=== PATIENT | male | born 1960 | race Caucasian/White ===

== ENCOUNTER 2016-07-29 21:02 | Emergency (ER) | payer OTHER ==
[~2016-07-29] VITALS: Ht 182.9 cm; Wt 130.0 kg
[~2016-07-29 21:02] MED LIST: FRS/40 PO; LEVO50TA6 PO; LISI5TAB3 PO; METO25TA56 PO; POTA20TA16 PO; ZCRT/40 PO
[2016-07-29 21:05] VITALS: TEMP 36.3; Ht 182.9 cm; Wt 130.0 kg
[2016-07-29] MEDS ORDERED: LISI5TAB PO (21:33)
[2016-07-29] MEDS ORDERED: NAPR1TAB9 PO (21:40)
[2016-07-29] MEDS ORDERED: C-PAP (21:40)
[2016-07-29] MEDS ORDERED: ONDANSETRON INJ 2 MG/ML 2 ML VIAL IV STA (21:47)
[2016-07-29] MEDS ORDERED: KETOROLAC TROMETHAMINE 30 MG/ML VIAL IV STA (21:47)
[2016-07-29] MEDS ORDERED: MoRPHine SULFATE 4 MG/ML 1 ML CARP\\VIAL IV STA (21:47)
--- NOTE | 2016-07-29 21:49 | EMERGENCY ROOM VISIT NOTE ---
History Report prepared by Marthaibyoan: Ross Mitchell Under the Supervision of: Dr. Shaw Acosta D.O. First contact with patient: 21:37 Chief Complaint: FLANK PAIN Stated Complaint: SHARP PAIN ON LF SIDE History of Present Illness The patient is a 56 year old male who presents to the Emergency Room with complaints of worsening left flank pain since 1899 tonight. The pain radiates to his left lower quadrant and to the testicles. The patient's pain was initially rated 7/10 in severity but is currently rated 10/10. The patient had Aleve for pain without relief. The patient has a history of diverticulitis, and he notes that the pain today is different. He has not had any past abdominal surgeries. He denies history of kidney stones. He denies any fevers, abdominal rashes or changes in his bowel movements. The patient denies any recent trauma. Source of History: patient Onset: 1899 tonight Position: other (left flank) Symptom Intensity: 10/10 Timing: worsening Associated Symptoms: + abdominal pain, No fevers, No rash Review of Systems See HPI for pertinent positives and negatives. A total of ten systems were reviewed and were otherwise negative. Past Medical & Surgical Medical Problems: (1) Encounter for removal of ollie (2) HTN (hypertension) (3) Laceration of scalp (4) Shoulder pain, left Family History No pertinent family history Social History Smoking Status: Former Smoker Alcohol Use: none Drug Use: none Marital Status: single Occupation Status: employed Current/Historical Medications Scheduled Levothyroxine Sodium (Levothyroxine Sodium), 125 MCG PO DAILY Lisinopril (Prinivil), 5 MG PO DAILY Metoprolol Tartrate (Lopressor) (Lopressor), 25 MG PO DAILY Simvastatin (Zocor), 40 MG PO HS [C-Pap], 2 LITER NA HS Scheduled PRN Naproxen (Aleve), 220 MG PO BID PRN for Pain Allergies Coded Allergies: No Known Allergies (Unverified , 01/19/15) Physical Exam Vital Signs Date Time Temp Pulse Resp B/P Pulse Ox O2 Delivery O2 Flow Rate FiO2 07/29/16 21:05 36.3 94 22 165/92 91 Room Air Physical Exam GENERAL: Awake, alert, well-appearing, in no distress HENT: Normocephalic, atraumatic. Oropharynx unremarkable. EYES: Normal conjunctiva. Sclera non-icteric. NECK: Supple. No nuchal rigidity. FROM. No JVD. RESPIRATORY: Clear to auscultation. CARDIAC: Regular rate, normal rhythm. Extremities warm and well perfused. Pulses equal. ABDOMEN: Soft, non-distended. Tenderness to the left lower quadrant. No rebound or guarding. No masses. RECTAL: Deferred. MUSCULOSKELETAL: Chest examination reveals no tenderness. The back is symmetrical on inspection without obvious abnormality. There is no CVA tenderness to palpation. No joint edema. LOWER EXTREMITIES: Calves are equal size bilaterally and non-tender. No edema. No discoloration. NEURO: Normal sensorium. No sensory or motor deficits noted. SKIN: No rash or jaundice noted. Medical Decision & Procedures ER Provider Diagnostic Interpretation: Radiology results as stated below per my review and radiologist interpretation ABDOMEN AND PELVIS CT WITHOUT CONTRAST CT DOSE: 1912.06 mGy.cm HISTORY: Left groin pain TECHNIQUE: Multiaxial CT images of the abdomen and pelvis were performed without the use of intravenous and oral contrast according to the standard department stone protocol. COMPARISON STUDY: None. FINDINGS: There is a 3 mm stone within the left ureterovesical junction resulting in mild left hydronephrosis. No additional renal calculi identified. No right-sided hydronephrosis. Multiple small stones within the gallbladder. The bladder is decompressed and not well evaluated. Tiny fat-containing umbilical hernia. The unenhanced liver, spleen, adrenal glands, and pancreas are unremarkable. No retroperitoneal lymphadenopathy. No bowel wall thickening or obstruction. Colonic diverticulosis. Normal appendix. IMPRESSION: 1. A 3 mm obstructing stone within the left ureterovesical junction resulting in mild left hydronephrosis. 2. Cholelithiasis. 3. Colonic diverticulosis. Electronically signed by: Sanya Anne M.D. 07/29/2016 10:18 PM Dictated Date/Time: 07/29/2016 10:13 PM Laboratory Results 07/29/16 21:33 Red Blood Count 4.40, Mean Corpuscular Volume 95.5, Mean Corpuscular Hemoglobin 32.5, Mean Corpuscular Hemoglobin Concent 34.0, Mean Platelet Volume 10.9, Neutrophils (%) (Auto) 65.9, Lymphocytes (%) (Auto) 21.9, Monocytes (%) (Auto) 8.8, Eosinophils (%) (Auto) 2.7, Basophils (%) (Auto) 0.6, Neutrophils # (Auto) 4.70, Lymphocytes # (Auto) 1.56, Monocytes # (Auto) 0.63, Eosinophils # (Auto) 0.19, Basophils # (Auto) 0.04 07/29/16 21:33 Test 07/29/16 00:00 07/29/16 21:33 Urine Color DK YELLOW Urine Appearance CLEAR (CLEAR) Urine pH 5.0 (4.5-7.5) Urine Specific [place] 1.034 (1.000-1.030) Urine Protein NEG (NEG) Urine Glucose (UA) NEG (NEG) Urine Ketones TRACE (NEG) Urine Occult Blood NEG (NEG) Urine Nitrite NEG (NEG) Urine Bilirubin NEG (NEG) Urine Urobilinogen NEG (NEG) Urine Leukocyte Esterase TRACE (NEG) Urine WBC (Auto) 10-30 /hpf (0-5) Urine RBC (Auto) 0-4 /hpf (0-4) Urine Hyaline Casts (Auto) 10-30 /lpf (0-5) Urine Epithelial Cells (Auto) >30 /lpf (0-5) Urine Bacteria (Auto) NEG (NEG) Urine Mucus PRESENT (NONE PRSENT) Urine Sperm (Auto) PRESENT (NOT PRESENT) White Blood Count 7.13 K/uL (4.8-10.8) Red Blood Count 4.40 M/uL (4.7-6.1) Hemoglobin 14.3 g/dL (14.0-18.0) Hematocrit 42.0 % (42-52) Mean Corpuscular Volume 95.5 fL (80-100) Mean Corpuscular Hemoglobin 32.5 pg (25-34) Mean Corpuscular Hemoglobin Concent 34.0 g/dl (32-36) Platelet Count 166 K/uL (130-400) Mean Platelet Volume 10.9 fL (7.4-10.4) Neutrophils (%) (Auto) 65.9 % Lymphocytes (%) (Auto) 21.9 % Monocytes (%) (Auto) 8.8 % Eosinophils (%) (Auto) 2.7 % Basophils (%) (Auto) 0.6 % Neutrophils # (Auto) 4.70 K/uL (1.4-6.5) Lymphocytes # (Auto) 1.56 K/uL (1.2-3.4) Monocytes # (Auto) 0.63 K/uL (0.11-0.59) Eosinophils # (Auto) 0.19 K/uL (0-0.5) Basophils # (Auto) 0.04 K/uL (0-0.2) RDW Standard Deviation 43.5 fL (36.4-46.3) RDW Coefficient of Variation 12.6 % (11.5-14.5) Immature Granulocyte % (Auto) 0.1 % Immature Granulocyte # (Auto) 0.01 K/uL (0.00-0.02) Anion Gap 8.0 mmol/L (3-11) Est Creatinine Clear Calc Drug Dose 90.6 ml/min Estimated GFR () 71.7 Estimated GFR (Non- 61.9 BUN/Creatinine Ratio 15.5 (10-20) Calcium Level 9.0 mg/dl (8.5-10.1) Laboratory results reviewed by me Medications Administered Medications (Trade) Dose Ordered Sig/Nisa Route Start Time Stop Time Status Last Admin Dose Admin Ondansetron HCl (Zofran Inj) 4 mg NOW STAT IV 07/29/16 21:47 07/29/16 21:49 DC 07/29/16 21:59 4 MG Ketorolac Tromethamine (Toradol Inj) 30 mg NOW STAT IV 07/29/16 21:47 07/29/16 21:49 DC 07/29/16 21:59 30 MG Morphine Sulfate (MoRPHine SULFATE INJ) 4 mg NOW STAT IV 07/29/16 21:47 07/29/16 21:49 DC 07/29/16 21:59 4 MG ED Course 2144: The patient was evaluated in room A3. A complete history and physical exam was performed. 2146: Morphine Sulfate 4 mg IV, Toradol 30 mg IV, Zofran 4 mg IV. 2226: Rocephin 1 gm IV. 2229: Flomax 0.4 mg PO. 2229: I reevaluated the patient. Discussed results and discharge instructions: He verbalized understanding and agreement. The patient is ready for discharge. Medical Decision Differential diagnosis includes kidney stone, renal colic, diverticulitis, UTI, pyelonephritis. No distress; discussed workup with the patient and patient's family at bedside. We will refer to urology treated with pain medicine as well as Flomax and antibiotics Impression Primary Impression: Ureterolithiasis Additional Impression: Left flank pain Scribe Attestation The scribe's documentation has been prepared under my direction and personally reviewed by me in its entirety. I confirm that the note above accurately reflects all work, treatment, procedures, and medical decision making performed by me. Departure Information Dispostion Home / Self-Care Prescriptions Tamsulosin Hcl (FLOMAX) 0.4 Mg Cap 0.4 MG PO DAILY, #10 CAP Prov: Shaw Acosta, DO 07/29/16 Hydrocodone/Acetaminophen 5MG/325MG ([place] 5MG/325MG) Tab 1 TABLET PO Q6 Y for Pain for 3 Days, #10 TAB Prov: Shaw Acosta, DO 07/29/16 Referrals Abbi Anders M.D. (PCP) Baldev Cheema MD Forms HOME CARE DOCUMENTATION FORM, IMPORTANT VISIT INFORMATION Patient Instructions Kidney Stones, My [facility] Problem Qualifiers
[2016-07-29 21:54] LABS: BASO % 0.6 %; BASO ABS # 0.04 K/uL (0-0.2); COMPLETE YES; EOS % 2.7 %; IG% 0.1 %; LYMPH % 21.9 %; LYMPH ABS # 1.56 K/uL (1.2-3.4); MEAN CELL VOLUME 95.5 fL (80-100); MEAN CORPUSCULAR HEMOGLOBIN 32.5 pg (25-34); MEAN PLATELET VOLUME 10.9 fL (7.4-10.4); MONO % 8.8 %; NEUT % 65.9 %; PLATELET COUNT 166 K/uL (130-400); WHITE BLOOD COUNT 7.13 K/uL (4.8-10.8)
[2016-07-29 22:01] LABS: BUN/CREATININE RATIO 15.5 (10-20); CREATININE 1.3 mg/dl (0.60-1.40)
[2016-07-29 22:04] LABS: URINE APPEARANCE CLEAR (CLEAR); URINE BILIRUBIN NEG (NEG); URINE COLOR DK YELLOW; URINE EPITHELIAL CELL AUTO >30 /lpf (0-5); URINE NITRITE NEG (NEG); URINE SPECIFIC GRAVITY 1.034 (1.000-1.030); UROBILINOGEN NEG (NEG)
[2016-07-29 22:07] LABS: MANUAL MICROSCOPIC REQUIRED? NO; REVIEW REQ? YES
--- NOTE | 2016-07-29 22:19 | DIAGNOSTIC IMAGING REPORT ---
ABDOMEN AND PELVIS CT WITHOUT CONTRAST CT DOSE: 1912.06 mGy.cm HISTORY: Left groin pain TECHNIQUE: Multiaxial CT images of the abdomen and pelvis were performed without the use of intravenous and oral contrast according to the standard department stone protocol. COMPARISON STUDY: None. FINDINGS: There is a 3 mm stone within the left ureterovesical junction resulting in mild left hydronephrosis. No additional renal calculi identified. No right-sided hydronephrosis. Multiple small stones within the gallbladder. The bladder is decompressed and not well evaluated. Tiny fat-containing umbilical hernia. The unenhanced liver, spleen, adrenal glands, and pancreas are unremarkable. No retroperitoneal lymphadenopathy. No bowel wall thickening or obstruction. Colonic diverticulosis. Normal appendix. IMPRESSION: 1. A 3 mm obstructing stone within the left ureterovesical junction resulting in mild left hydronephrosis. 2. Cholelithiasis. 3. Colonic diverticulosis. Electronically signed by: Sanya Anne M.D. 07/29/2016 10:18 PM Dictated Date/Time: 07/29/2016 10:13 PM
[2016-07-29 22:25] LABS: URINE MUCUS PRESENT (NONE PRSENT)
[2016-07-29] MEDS ORDERED: CEFTRIAXONE SOD INJ 1 GM ADDVIAL IV STA (22:27)
[2016-07-29] MEDS ORDERED: TAMSULOSIN HCL 0.4 MG CAP PO ONE (22:30)
[2016-07-29] MEDS ORDERED: HYDR-5688 PO (22:43)
[2016-07-29] MEDS ORDERED: TAMS0.4C38 PO (22:43)
[2016-07-29 23:27] VITALS: BP 170/102; PULSE 98; O2SAT 95
[2016-07-29] MEDS ORDERED: NORCO 5/325MG HOME PACK PO ONE (23:30)
== END 2016-07-29 23:28 | disposition home or self-care (01) ==
LOC: C.EDB 21:03 → C.EDA 23:28
DX: N20.1 Calculus of ureter (principal); I10 Essential (primary) hypertension; Z87.891 Personal history of nicotine dependence; Z79.899 Other long term (current) drug therapy

== ENCOUNTER 2017-05-23 16:51 | Emergency (ER) | payer OTHER ==
[~2017-05-23] VITALS: Ht 182.9 cm; Wt 176.0 kg
[~2017-05-23 16:51] MED LIST changes: -APIX1TAB3 PO; -C-PAP; -LEVO125T72 PO; -LISI5TAB PO
[2017-05-23 17:17] VITALS: TEMP 36.9; Ht 182.9 cm; Wt 176.0 kg
[2017-05-23] MEDS ORDERED: LEVO125T72 PO (18:51)
[2017-05-23] MEDS ORDERED: OPTIRAY 320 IV PRN (19:00)
--- NOTE | 2017-05-23 19:44 | EMERGENCY ROOM VISIT NOTE ---
History First contact with patient: 18:37 Chief Complaint: OTHER COMPLAINT Stated Complaint: BLOOD CLOT History of Present Illness The patient is a 56 year old male who presents to the Emergency Room with complaints of dyspnea. The patient was seen by his primary care provider earlier today for left leg swelling and pain which began approximately 1 week ago. The patient states his symptoms are also associated with difficulty breathing and dyspnea on exertion. The patient had an ultrasound performed this evening which did show positive DVT in the left leg. He contacted his primary care provider, and was sent to the emergency department for further evaluation and management. The patient states his PCP wanted to rule out pulmonary embolism due to the difficulty breathing. The patient denies any history of DVT, recent surgery, recent inactivity or travel, hormone use, and is not a current smoker. He was a smoker, but quit 20 years ago. He denies any family history of DVT, CVA, or NM. He denies any chest pain. The patient is not currently on blood thinners. He describes the pain as sharp in his left lower extremity, and rates it 2/10. He denies any tachycardia. Review of Systems A complete 10 point review of systems was reviewed with the patient with pertinent positives and negatives as per history of present illness. All else were negative. Past Medical/Surgical History Medical Problems: (1) Encounter for removal of ollie (2) HTN (hypertension) (3) Laceration of scalp (4) Shoulder pain, left Family History No pertinent family history Social History Smoking Status: Former Smoker Alcohol Use: none Drug Use: none Marital Status: single Occupation Status: employed Current/Historical Medications Scheduled Apixaban (Eliquis), 5 MG PO BID Apixaban (Eliquis), 10 MG PO BID Levothyroxine Sodium (Synthroid), 125 MCG PO DAILY Lisinopril (Prinivil), 5 MG PO DAILY Metoprolol Tartrate (Lopressor) (Lopressor), 25 MG PO DAILY Simvastatin (Zocor), 40 MG PO HS [C-Pap], 2 LITER NA HS Physical Exam Vital Signs Date Time Temp Pulse Resp B/P (MAP) Pulse Ox O2 Delivery O2 Flow Rate FiO2 05/23/17 22:04 80 18 161/84 98 Room Air 05/23/17 21:00 78 19 158/81 96 Room Air 05/23/17 19:15 81 20 157/89 95 Room Air 05/23/17 17:17 36.9 93 20 160/99 94 Room Air Physical Exam VITALS: Vitals are noted on the nurse's note and reviewed by myself. Vital signs stable. GENERAL: This is a 56-year-old obese white male, in no acute distress, nondiaphoretic, well-developed well-nourished. SKIN: The skin was without rashes, erythema, edema, or bruising. There is no tenting of the skin. Capillary reflex less than 2 seconds. HEAD: Normocephalic atraumatic. EARS: External auditory canals clear, tympanic membranes pearly lewis without erythema or effusion bilaterally. EYES: Pupils equal round and reactive to light and accommodation. Conjunctivae without injection, sclerae without icterus. Extraocular movements intact. NOSE: Patent, turbinates without inflammation or discharge. No sinus tenderness. MOUTH: Mucous membranes moist. Tonsils are not enlarged. Pharynx without erythema or exudate. Uvula midline. Airway patent. Tongue does not deviate. NECK: Supple without nuchal rigidity. No lymphadenopathy. No thyromegaly. Cervical spine is nontender. No JVD. HEART: Regular rate and rhythm without murmurs gallops or rubs. LUNGS: Clear to auscultation bilaterally without wheezes, rales or rhonchi. No dullness to percussion. No retractions or accessory muscle use. ABDOMEN: Positive bowel sounds x 4. Normal tympanic percussion. Soft, nontender, without masses or organomegaly. Jordan sign negative. No guarding or rebound tenderness. MUSCULOSKELETAL: The left lower extremity is edematous with erythema and noted from the midfoot to the mid thigh. There is tenderness of the left calf on palpation. No palpable cord. No other muscle atrophy, erythema, or edema noted. Full range of motion without joint tenderness in all extremities. No other tenderness to palpation. Normal gait. Strength 5/5 throughout. NEURO: Patient was alert and oriented to person place and time. Normal sensation to light and sharp touch. Deep tendon reflexes 2+ throughout. No focal neurological deficits. Medical Decision & Procedures ER Provider Diagnostic Interpretation: CT ANGIOGRAPHY OF THE CHEST, PULMONARY EMBOLUS PROTOCOL CLINICAL HISTORY: Chest pain. Dyspnea. Deep venous thrombus. COMPARISON STUDY: Chest radiograph August 17, 2011. TECHNIQUE: Following IV administration of 103 mL of [id number]-320, helical axial images of the chest were obtained utilizing the pulmonary embolus protocol. Maximal intensity projections and sagittal and coronal reformats were viewed on an independent 3D workstation. IV contrast was administered without complication. A dose lowering technique was utilized adhering to the principles of ALARA. CT DOSE: 821.79 mGy.cm FINDINGS: No central pulmonary emboli are identified. The lobar, segmental and subsegmental pulmonary arteries are suboptimally assessed due to respiratory motion. The size of the heart is normal. There is no pericardial effusion. There is no thoracic aortic dissection. No enlarged thoracic lymph nodes are present. There is no consolidation to suggest pneumonia. Note is made of a 5 mm perifissural nodule within the left lower lobe shown on image 199. There is no pneumothorax or pleural effusion. There is mild ground glass opacities with mosaic attenuation within the lungs. Bony thorax is unremarkable. There are gallstones within the gallbladder. IMPRESSION: 1. Exam significantly compromised by respiratory motion artifact. No central pulmonary emboli. Remainder of the arteries suboptimally assessed due to respiratory motion. 2. 5 mm left lower lobe nodule which is likely benign. A follow-up chest CT in 6 months to ensure stability is recommended. 3. Groundglass opacities with mosaic attenuation within the lower lobes which likely reflects atelectasis however air trapping could appear similar. Electronically signed by: Fabio Mace M.D. 05/23/2017 8:53 PM Dictated Date/Time: 05/23/2017 8:44 PM Laboratory Results 05/23/17 19:33 Red Blood Count 4.49, Mean Corpuscular Volume 94.9, Mean Corpuscular Hemoglobin 33.2, Mean Corpuscular Hemoglobin Concent 35.0, Mean Platelet Volume 10.0, Neutrophils (%) (Auto) 54.6, Lymphocytes (%) (Auto) 32.2, Monocytes (%) (Auto) 8.7, Eosinophils (%) (Auto) 3.7, Basophils (%) (Auto) 0.7, Neutrophils # (Auto) 4.00, Lymphocytes # (Auto) 2.36, Monocytes # (Auto) 0.64, Eosinophils # (Auto) 0.27, Basophils # (Auto) 0.05 05/23/17 19:33 Test 05/23/17 19:33 White Blood Count 7.33 K/uL (4.8-10.8) Red Blood Count 4.49 M/uL (4.7-6.1) Hemoglobin 14.9 g/dL (14.0-18.0) Hematocrit 42.6 % (42-52) Mean Corpuscular Volume 94.9 fL (80-100) Mean Corpuscular Hemoglobin 33.2 pg (25-34) Mean Corpuscular Hemoglobin Concent 35.0 g/dl (32-36) Platelet Count 195 K/uL (130-400) Mean Platelet Volume 10.0 fL (7.4-10.4) Neutrophils (%) (Auto) 54.6 % Lymphocytes (%) (Auto) 32.2 % Monocytes (%) (Auto) 8.7 % Eosinophils (%) (Auto) 3.7 % Basophils (%) (Auto) 0.7 % Neutrophils # (Auto) 4.00 K/uL (1.4-6.5) Lymphocytes # (Auto) 2.36 K/uL (1.2-3.4) Monocytes # (Auto) 0.64 K/uL (0.11-0.59) Eosinophils # (Auto) 0.27 K/uL (0-0.5) Basophils # (Auto) 0.05 K/uL (0-0.2) RDW Standard Deviation 45.4 fL (36.4-46.3) RDW Coefficient of Variation 13.0 % (11.5-14.5) Immature Granulocyte % (Auto) 0.1 % Immature Granulocyte # (Auto) 0.01 K/uL (0.00-0.02) Prothrombin Time 11.4 SECONDS (9.0-12.0) Prothromb Time International Ratio 1.1 (0.9-1.1) Activated Partial Thromboplast Time 24.8 SECONDS (21.0-31.0) Partial Thromboplastin Ratio 1.0 Anion Gap 7.0 mmol/L (3-11) Est Creatinine Clear Calc Drug Dose 131.8 ml/min Estimated GFR () 91.8 Estimated GFR (Non- 79.2 BUN/Creatinine Ratio 10.7 (10-20) Calcium Level 9.3 mg/dl (8.5-10.1) Total Bilirubin 0.9 mg/dl (0.2-1) Aspartate Amino Transf (AST/SGOT) 21 U/L (15-37) Alanine Aminotransferase (ALT/SGPT) 32 U/L (12-78) Alkaline Phosphatase 49 U/L (45-117) Total Protein 8.1 gm/dl (6.4-8.2) Albumin 4.0 gm/dl (3.4-5.0) Globulin 4.1 gm/dl (2.5-4.0) Albumin/Globulin Ratio 1.0 (0.9-2) Folate 16.64 ng/mL (>5.38) Medications Administered Medications (Trade) Dose Ordered Sig/Nisa Route Start Time Stop Time Status Last Admin Dose Admin Apixaban (Eliquis Tab) 10 mg NOW STAT PO 05/23/17 21:08 05/23/17 21:18 DC 05/23/17 22:00 10 MG Apixaban (Eliquis Tab) 10 mg BID STAT PO 05/23/17 21:08 05/23/17 21:18 DC 05/23/17 21:08 10 MG ED Course The patient was seen and evaluated as above. Previous EMR reviewed including DVT study. IV access obtained, labs drawn. Labs reviewed by myself. CTA chest performed and reviewed by myself and radiologist as above. I discussed the findings with the patient at bedside. I discussed the case with Dr. Lowe. The patient was given his first dose of Eliquis while here in the emergency department. Discharge instructions reviewed, the patient was discharged home in good condition. Medical Decision This is a 56-year-old male patient presents to the emergency department complaining of DVT and difficulty breathing. The patient was seen previously today by his PCP where he was sent for ultrasound to rule out DVT. Ultrasound was positive for thrombus within the left popliteal, posterior tibial, and peroneal veins. The thrombus is occlusive. Associated with the left lower extremity swelling, the patient also has had some mild difficulty breathing which she describes as "shortness of breath". He states this is worse with ambulation or activity. He states it has not been severe, but his PCP was concerned for possible PE due to the positive DVT, and sent him to the emergency department for evaluation. While here, the patient did have hypercoagulability labs drawn. He had a mildly decreased red blood cell count of 4.49. He did not have any significant leukocytosis or anemia noted. CMP showed slightly elevated chloride of 108, but no significant renal, hepatic, or electrolyte abnormalities. Folate was 16.64. PT 11.4, INR 1.1. The rest of the hypercoagulability workup is pending. The patient did not have any known risk factors causing his clot, which is why hypercoagulability workup was initiated. The patient's CT scan was negative for acute PE, however there was concern for a benign-appearing nodule. I did discuss this finding with the patient and his family members at bedside. He was encouraged to follow-up outpatient with his primary care provider for repeat CT scan in 6 months. The patient will be started on Eliquis at this time, however he is concerned for the cost. I discussed options including Eliquis, Coumadin, or Xarelto. I encouraged patient to follow-up with his primary care provider if cost becomes an issue. Etiologies such as DVT, PE, ACS, joint effusion, infection, trauma, muscular, lymphedema, idiopathic, CHF, malignancy, as well as others were entertained. Medication Reconcilliation Current Medication List: was personally reviewed by me Blood Pressure Screening Patient's blood pressure: Elevated blood pressure Blood pressure disposition: Elevated BP felt to be situational Impression Primary Impression: DVT (deep venous thrombosis) Departure Information Dispostion Home / Self-Care Condition GOOD Prescriptions Apixaban (ELIQUIS) 5 Mg Tab 10 MG PO BID for 6 Days, #24 TAB Prov: Maile Irving PA-C 05/23/17 Apixaban (ELIQUIS) 5 Mg Tab 5 MG PO BID, #60 TAB Prov: Maile Irving PA-C 05/23/17 Referrals Brie Dimas M.D. (PCP) Patient Instructions ED DVT, My [facility] Additional Instructions You were seen in the ED today for DVT. CT chest was negative for acute PE. You were discharged on Eliquis. You were given your first dose here in the ED for tonight. You were provided with your 2 doses for tomorrow. You should take 10 mg twice daily for the first 7 days. After that time, take 5 mg twice daily until directed otherwise by her primary care provider. You do not need to monitor blood levels on Eliquis, however, if you fall or injure yourself, especially your head, you should seek care in the ED for evaluation and to rule out head bleed. Please do not participate in high impact sports while on blood thinning medications. Follow-up with the PCP regarding lung nodule noted on CT scan. You should have a repeat CT scan performed in 6 months. Please follow-up with your PCP tomorrow for further evaluation and management of the clot. Return to the emergency department for any difficulty breathing, chest pain, fast heart rate, worsening swelling or pain, no pulse in the left leg, blue discoloration, or other concerning symptoms. Problem Qualifiers Primary Impression: DVT (deep venous thrombosis) DVT location: lower extremity Affected thrombotic vein of extremity: unspecified lower extremity distal vein Chronicity: acute Laterality: left Qualified Codes: I82.4Z2 - Acute embolism and thrombosis of unspecified deep veins of left distal lower extremity
[2017-05-23 19:55] LABS: BASO % 0.7 %; BASO ABS # 0.05 K/uL (0-0.2); EOS % 3.7 %; EOS ABS # 0.27 K/uL (0-0.5); HEMATOCRIT 42.6 % (42-52); HEMOGLOBIN 14.9 g/dL (14.0-18.0); IG# 0.01 K/uL (0.00-0.02); LYMPH % 32.2 %; LYMPH ABS # 2.36 K/uL (1.2-3.4); MEAN CELL VOLUME 94.9 fL (80-100); MEAN CORPUSCULAR HEMOGLOBIN 33.2 pg (25-34); MONO % 8.7 %; MONO ABS # 0.64 K/uL (0.11-0.59); NEUT % 54.6 %; PLATELET COUNT 195 K/uL (130-400); RED CELL DISTRIBUTION WIDTH SD 45.4 fL (36.4-46.3); WHITE BLOOD COUNT 7.33 K/uL (4.8-10.8)
[2017-05-23 20:15] LABS: CALCIUM 9.3 mg/dl (8.5-10.1); CREATININE 1.06 mg/dl (0.60-1.40); POTASSIUM 4.2 mmol/L (3.5-5.1)
[2017-05-23 20:16] LABS: TOTAL PROTEIN 8.1 gm/dl (6.4-8.2)
[2017-05-23 20:18] LABS: INR 1.1 (0.9-1.1); PTT PATIENT 24.8 SECONDS (21.0-31.0)
--- NOTE | 2017-05-23 20:54 | DIAGNOSTIC IMAGING REPORT ---
CT ANGIOGRAPHY OF THE CHEST, PULMONARY EMBOLUS PROTOCOL CLINICAL HISTORY: Chest pain. Dyspnea. Deep venous thrombus. COMPARISON STUDY: Chest radiograph August 17, 2011. TECHNIQUE: Following IV administration of 103 mL of Optiray-320, helical axial images of the chest were obtained utilizing the pulmonary embolus protocol. Maximal intensity projections and sagittal and coronal reformats were viewed on an independent 3D workstation. IV contrast was administered without complication. A dose lowering technique was utilized adhering to the principles of ALARA. CT DOSE: 821.79 mGy.cm FINDINGS: No central pulmonary emboli are identified. The lobar, segmental and subsegmental pulmonary arteries are suboptimally assessed due to respiratory motion. The size of the heart is normal. There is no pericardial effusion. There is no thoracic aortic dissection. No enlarged thoracic lymph nodes are present. There is no consolidation to suggest pneumonia. Note is made of a 5 mm perifissural nodule within the left lower lobe shown on image 199. There is no pneumothorax or pleural effusion. There is mild ground glass opacities with mosaic attenuation within the lungs. Bony thorax is unremarkable. There are gallstones within the gallbladder. IMPRESSION: 1. Exam significantly compromised by respiratory motion artifact. No central pulmonary emboli. Remainder of the arteries suboptimally assessed due to respiratory motion. 2. 5 mm left lower lobe nodule which is likely benign. A follow-up chest CT in 6 months to ensure stability is recommended. 3. Groundglass opacities with mosaic attenuation within the lower lobes which likely reflects atelectasis however air trapping could appear similar. Electronically signed by: Fabio Mace M.D. 05/23/2017 8:53 PM Dictated Date/Time: 05/23/2017 8:44 PM
[2017-05-23] MEDS ORDERED: APIXABAN 2.5 MG TAB PO STA ×2 (21:08)
[2017-05-23] MEDS ORDERED: APIX1TAB3 PO ×2 (21:23→21:27)
[2017-05-23] MEDS ORDERED: LISI5TAB PO (21:33)
[2017-05-23] MEDS ORDERED: C-PAP (21:40)
[2017-05-23 22:04] VITALS: BP 161/84; PULSE 80; O2SAT 98
== END 2017-05-23 22:06 | disposition home or self-care (01) ==
LOC: C.EDB 16:52 → C.EDD 22:06
DX: I82.4Z2 Acute embolism and thrombosis of unspecified deep veins of left distal lower extremity (principal); I10 Essential (primary) hypertension; R71.8 Other abnormality of red blood cells; R74.8 Abnormal levels of other serum enzymes; R91.8 Other nonspecific abnormal finding of lung field; Z87.891 Personal history of nicotine dependence

== ENCOUNTER → 2017-05-23 | Outpatient (CLI) | payer OTHER ==
[~2017-05-23] MED LIST changes: +APIX1TAB3 PO; +C-PAP; -FRS/40 PO; +LEVO125T72 PO; +LISI5TAB PO; -LISI5TAB3 PO; +NAPR1TAB9 PO; -POTA20TA16 PO
--- NOTE | 2017-05-23 16:08 | DIAGNOSTIC IMAGING REPORT ---
LEFT LOWER EXTREMITY VENOUS DOPPLER CLINICAL HISTORY: Left leg pain and swelling. COMPARISON STUDY: No previous studies for comparison. TECHNIQUE: Sonography of the deep venous system of the left lower extremity was performed. Compression and augmentation were evaluated. FINDINGS: The left common femoral and superficial femoral veins are patent. There is thrombus within left popliteal, posterior tibial and peroneal veins. This thrombus is occlusive. Vessels are expanded. This suggests acute deep venous thrombus. Exam is compromised by suboptimal penetration. IMPRESSION: Deep venous thrombus within the left popliteal, posterior tibial and peroneal veins which is likely acute. Electronically signed by: Fabio Mace M.D. 05/23/2017 4:07 PM Dictated Date/Time: 05/23/2017 4:05 PM
== END | disposition home or self-care (01) ==
LOC: C.ULTRBC 15:38
PROVIDERS: ATTEND Nurse Practitioner
DX: M79.662 Pain in left lower leg (principal); M79.89 Other specified soft tissue disorders; I82.432 Acute embolism and thrombosis of left popliteal vein; I82.442 Acute embolism and thrombosis of left tibial vein; I82.492 Acute embolism and thrombosis of other specified deep vein of left lower extremity

== ENCOUNTER → 2017-10-27 | Outpatient (CLI) | payer OTHER ==
[~2017-10-27] MED LIST changes: +APIX1TAB3 PO; +C-PAP; +LEVO125T72 PO; -LEVO50TA6 PO; +LISI5TAB PO; -NAPR1TAB9 PO
--- NOTE | 2017-10-27 10:49 | DIAGNOSTIC IMAGING REPORT ---
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 Distribution is similar. The venous expansion previously described is no longer present. IMPRESSION: Chronic thrombophlebitis as described. No evidence for a new, interval or acute component of acute deep venous thrombosis. The above report was generated using voice recognition software. It may contain grammatical, syntax or spelling errors. Electronically signed by: Charles Perry M.D. 10/27/2017 10:48 AM Dictated Date/Time: 10/27/2017 10:45 AM
== END | disposition home or self-care (01) ==
LOC: C.ULTRBC 10:23
PROVIDERS: ATTEND Internal Medicine Hematology
DX: I82.402 Acute embolism and thrombosis of unspecified deep veins of left lower extremity (principal); I80.222 Phlebitis and thrombophlebitis of left popliteal vein; I80.232 Phlebitis and thrombophlebitis of left tibial vein; I80.292 Phlebitis and thrombophlebitis of other deep vessels of left lower extremity